=== PATIENT | male | born 1990 | race African-American/Black ===

== ENCOUNTER 2018-12-30 14:18 | Emergency (ER) | payer OTHER ==
[~2018-12-30] VITALS: Ht 180.3 cm; Wt 86.2 kg
== END 2019-01-11 | disposition home or self-care (01) ==
LOC: ER 14:18
DX: R42 Dizziness and giddiness (principal)

== ENCOUNTER 2021-07-27 15:52 | Emergency (ER) | payer OTHER ==
[~2021-07-27] VITALS: Ht 177.8 cm; Wt 89.4 kg
[2021-07-27] MEDS ORDERED: ULTRAM50 MG PO (16:08)
== END 2021-07-27 20:07 | disposition home or self-care (01) ==
LOC: ER 15:52
DX: N39.0 Urinary tract infection, site not specified (principal); N50.812 Left testicular pain

== ENCOUNTER 2021-12-03 19:24 | Emergency (ER) | payer OTHER ==
[~2021-12-03] VITALS: Ht 121.9 cm; Wt 27.2 kg
[~2021-12-03 19:24] MED LIST: ULTRAM50 MG PO
[2021-12-03] MEDS ORDERED: ZITHROMAX200 MG/53 PO (19:39)
[2021-12-03] MEDS ORDERED: PULMICORT1 MG/2 ML IH (19:39)
== END 2021-12-03 20:44 | disposition home or self-care (01) ==
LOC: ER 19:24 → EDBD 19:24 → ER 19:32 → EMR PED 19:32
DX: J20.9 Acute bronchitis, unspecified (principal)

== ENCOUNTER 2022-08-03 14:14 | Emergency (ER) | payer OTHER ==
[~2022-08-03] VITALS: Ht 124.5 cm; Wt 29.0 kg
[~2022-08-03 14:14] MED LIST changes: +PULMICORT1 MG/2 ML IH; +ZITHROMAX200 MG/53 PO
== END 2022-08-03 16:55 | disposition home or self-care (01) ==
LOC: EMR PED 14:14
DX: J32.9 Chronic sinusitis, unspecified (principal); R05.9 Cough, unspecified

== ENCOUNTER 2023-04-06 23:22 | Emergency (ER) | payer OTHER ==
[~2023-04-06] VITALS: Ht 152.4 cm; Wt 83.9 kg
[2023-04-06] MEDS ORDERED: XANAX1 MG (23:32)
[2023-04-07] MEDS ORDERED: KETOROLAC TROMETHAMINE 60 MG VIAL IM STA (03:13)
[2023-04-07 03:39] LABS: PH,URINE 5.5 (5.0-8.0); URINE APPEARANCE Clear; URINE BILIRRUBIN Negative (NEGATIVE); URINE BLOOD Negative; URINE COLOR Yellow; URINE GLUCOSE Negative (NEGATIVE); URINE LEUKOCYTE Negative; URINE NITRATE Negative; URINE PROTEIN Negative (NEGATIVE); URINE UROBILINOGEN 0.2 E.U./dl
[2023-04-07 03:43] LABS: URINE BACTERIA 11.3 uL (0.0-1933)
[2023-04-07 04:09] LABS: URINE EPITHELIAL CELLS 0.9 uL (0.0-38.8); URINE RBC 0.5 uL (0.0-20.8); URINE WBC 0.6 uL (0.0-23.2)
[2023-04-07] MEDS ORDERED: KETO10TA2 PO (05:19)
[2023-04-07] MEDS ORDERED: NORFLEX100MG PO (05:19)
[2023-04-07] MEDS ORDERED: DIPHENHYDRAMINE HCL 12.5 MG/5 ML BLIST.PACK PO ONE (05:30)
== END 2023-04-07 05:30 ==
LOC: ER 23:22
PROVIDERS: General Practice
DX: M54.50 Low back pain, unspecified (principal); R30.0 Dysuria; M25.511 Pain in right shoulder